=== PATIENT | female | born 1980 | race Two or more races ===

== ENCOUNTER 2022-06-22 03:21 | Emergency (ER) | payer MEDICAID ==
[~2022-06-22] VITALS: Ht 160 cm; Wt 85.0 kg
[2022-06-22 04:22] LABS: Urine WBC None Seen /hpf (0 - 5)
[2022-06-22 04:30] LABS: Urine Bacteria FEW /hpf (None Seen); Urine Blood 3+ /uL (Negative); Urine Specific Gravity 1.005 (1.001-1.035)
[2022-06-22 07:52] VITALS: BP 126/76
[2022-06-22 08:12] LABS: Basophils # (auto) 0.1 10 ^3/uL (0-0.2); Eosinophils # (auto) 0.4 10 ^3/uL (0-0.8); Mean Corpuscular Hemoglobin 21.6 pg (28.0-32.0); Monocytes # (auto) 0.3 10 ^3/uL (0-1.3)
[2022-06-22 08:16] LABS: Basophils % (auto) 1.1 % (0.0-2.0); Eosinophils % (auto) 6.1 % (0.0-7.0); Hemoglobin 8.4 g/dL (12.2-16.2); Lymphocytes # (auto) 1.8 10 ^3/uL (0.4-5.4); Lymphocytes % (auto) 30.6 % (10.0-50.0); Mean Corpuscular Hgb Conc. 31.3 g/dL (32.0-36.0); Monocytes % (auto) 5.4 % (0.0-12.0); Neutrophils # (auto) 3.4 10 ^3/uL (1.6-8.6); Neutrophils % (auto) 56.8 % (37.0-80.0); Red Blood Cells 3.91 10^6/uL (4.0-5.20); Red Cell Distribution Width 18.4 % (11.8-14.3)
== END 2022-06-22 11:08 | disposition left against medical advice (07) ==
LOC: ER 03:21
DX: N93.9 Abnormal uterine and vaginal bleeding, unspecified (principal)
CPT/HCPCS: 36415; 81001; 84702; 85025